=== PATIENT | male | born 1980 | race Two or more races ===

== ENCOUNTER 2018-03-05 02:53 | Emergency (ER) | payer MEDICAID ==
[~2018-03-05] VITALS: Ht 180.3 cm; Wt 86.4 kg
[2018-03-05] MEDS ORDERED: ALBU8HFA IH (02:57)
[2018-03-05] MEDS ORDERED: ALBUTEROL SULFATE 2.5 MG/0.5 ML NEB SOLUTION NEB ONE (03:00)
[2018-03-05] MEDS ORDERED: IPRATROPIUM BROMIDE 0.5 MG/2.5 ML NEB SOLUTION NEB ONE (03:00)
[2018-03-05] MEDS ORDERED: PredniSONE 20 MG TABLET PO ONE (03:15)
[2018-03-05 03:23] VITALS: BP 108/76
[2018-03-05] MEDS ORDERED: ALBUTEROL SULFATE HFA 90 MCG/PUFF 8 GM INHALER IH ONE (03:45)
== END 2018-03-05 03:56 | disposition home or self-care (01) ==
LOC: EMS 02:53
DX: J45.901 Unspecified asthma with (acute) exacerbation (principal); F12.90 Cannabis use, unspecified, uncomplicated; Z88.5 Allergy status to narcotic agent; Z88.0 Allergy status to penicillin
CPT/HCPCS: 71045; 94640; 99284; J7512; J7613; J3535